=== PATIENT | male | born 1965 | race Caucasian/White ===

== ENCOUNTER 2019-03-25 12:49 | Outpatient (CLI) | payer BC ==
--- NOTE | 2019-03-25 13:56 | CT ---
CT lumbar spine without contrast: HISTORY: Lumbar radiculopathy. Patient states low back pain with right leg pain. History of L4-5 fusion. COMPARISON: No prior CT exams of the lumbar spine available FINDINGS: A 1.7 cm exophytic hypodense lesion is seen involving the posterior aspect midportion right kidney. F urther evaluation with renal sonogram is recommended. Minimal vascular calcifications are seen in the abdominal aorta and involving the iliac arteries. Colonic diverticulosis is seen involving the visualized sigmoid colon. No fracture or subluxation is seen involving lumbar spine. Surgical clips are seen anterior to the L4 -5 level. L1-2: No significant central canal or neural foraminal narrowing is seen. L2-3: No significant central canal or neural foraminal narrowing is seen. L3-4: There is a mild disc osteophyte complex as well as facet degenerative changes. There is resulta nt mild narrowing of the central spinal canal. There is minimal bilateral neural foraminal narrowing on the right. The left neural foramen is patent. L4-5: There is loss of intervertebral disc height with endplate degenerative changes at this level. P rominent osteophytes are seen anteriorly. There is calcification in the intervertebral disc. A mild disc osteophyte complex is present which does encroach on the anterior aspect of the thecal sac. Ther e is mild left-sided neural foraminal narrowing. The right neural foramen is patent. L5-S1: There is a mild disc osteophyte complex present with evidence of a central/right paracentral d isc protrusion. This disc protrusion does appear to contact of the traversing right S1 nerve root and may affect the traversing right S1 nerve root. There is no narrowing of the thecal sac at this le deirdre. Mild bilateral neural foraminal narrowing is noted. IMPRESSION: 1. Exophytic hypodense lesion posterior aspect midportion right kidney which cannot be further charac terized based on this exam. Renal sonogram is recommended for further evaluation. 2. Degenerative changes lumbar spine with a disc osteophyte complex and central/right paracentral dis c protrusion at the L5-S1 level which does appear to contact the traversing right S1 nerve root. This may potentially affect the traversing right S1 nerve root, and correlation with neurological exa m is recommended.
== END 2019-03-25 12:50 | disposition home or self-care (01) ==
LOC: TBSIIMAG 12:49
PROVIDERS: ATTEND Neurological Surgery
DX: M47.26 Other spondylosis with radiculopathy, lumbar region (principal); M51.27 Other intervertebral disc displacement, lumbosacral region; M25.78 Osteophyte, vertebrae; N28.89 Other specified disorders of kidney and ureter
CPT/HCPCS: 72131

== ENCOUNTER 2019-04-28 08:04 | Day surgery (SDC) | payer BC ==
[2019-04-25 09:03] VITALS: BMI 35.9
[2019-04-28 08:50] LABS: #Basophils 0.1 thou/uL (0.0-0.2); #Eosinphils 0.1 thou/uL (0.0-0.7); #Lymphocytes 2.5 thou/uL (1.20-3.40); #Monocytes 0.7 thou/uL (0.11-0.59); #Neutrophils 3.7 thou/uL (1.40-6.50); %Basophils 0.9 % (0.0-1.0); %Lymphocytes 35.6 % (21.0-51.0); %Monocytes 9.6 % (0.0-10.0); %Neutrophils 51.9 % (42.0-75.0); Mean Corpuscular HGB CONC 33.5 g/dL (32.0-36.0); Mean Corpuscular Hemoglobin 30.1 pg (27.0-31.0); Mean Corpuscular Volume 89.8 fL (78.0-98.0); Mean Platelet Volume 8.2 fL (7.4-10.4); Platelet Count 246 thou/uL (130-400); RBC Distribution Width 11.8 % (11.5-14.5); Red Blood Cell (RBC) Count 4.99 mill/uL (4.70-6.10)
[2019-04-28 09:16] LABS: Anion Gap 11 mmol/L (10-20); BUN (Urea Nitrogen) 16 mg/dL (8.4-25.7); Calc. Creatinine Clearance 161 mL/min (70-130); Calcium 9.3 mg/dL (7.8-10.44); Carbon Dioxide 27 mmol/L (22-29); Chloride 106 mmol/L (98-107); Estimated GFR-MDRD Greater than 90; Glucose 92 mg/dL (70-105); Potassium 4.4 mmol/L (3.5-5.1); Sodium 140 mmol/L (136-145)
[2019-04-28] MEDS ORDERED: Rocuronium Bromide 10 MG/ML (10ML VIAL) ONE (10:23)
[2019-04-28] MEDS ORDERED: Ketorolac Tromethamine 30 MG/ML VIAL ONE (10:23)
[2019-04-28] MEDS ORDERED: Glycopyrrolate 0.2 MG/ML 5 ML SYRINGE ONE (10:23)
[2019-04-28] MEDS ORDERED: PROPOFOL 200 MG/20 ML VIAL ONE (10:23)
[2019-04-28] MEDS ORDERED: Ondansetron PF 4 MG/2 ML Vial ONE (10:23)
[2019-04-28] MEDS ORDERED: Succinylcholine Chloride 20 MG/ML 10 ml SYRINGE FS ONE (10:23)
[2019-04-28] MEDS ORDERED: Lidocaine 1% PF 5 ML VIAL ONE (10:23)
[2019-04-28] MEDS ORDERED: Dexamethasone 20 MG/5 ML VIAL ONE (10:23)
[2019-04-28] MEDS ORDERED: Fentanyl 100 MCG/2 ML VIAL ONE ×3 (10:31→12:52)
[2019-04-28] MEDS ORDERED: Tamsulosin HCl 0.4 MG CAP ONE (12:18)
--- NOTE | 2019-04-28 16:29 | EKG ---
Test Reason : PREOP Blood Pressure : / mmHG Vent. Rate : 064 BPM Atrial Rate : 064 BPM P-R Int : 164 ms QRS Dur : 096 ms QT Int : 396 ms P-R-T Axes : 060 019 022 degrees QTc Int : 408 ms Normal sinus rhythm Normal ECG No previous ECGs available Confirmed by DR. Bautista BAR ([id number]) on 04/28/2019 4:28:50 PM Referred By: RAS Confirmed By:DR. Bautista BAR
--- NOTE | 2019-04-28 17:12 | OP ---
DATE OF PROCEDURE: 04/28/2019 BARGEMAN: An Ortiz PA-C PROCEDURE PERFORMED: Right L5-S1 microdiskectomy. DESCRIPTION OF PROCEDURE: The patient was brought to the operating room and intubated. He was rolled in a prone position on gel-filled chest rolls. An incision was made exposing right L5-S1 and level was confirmed by x-ray. We performed a right L5-S1 hemilaminectomy, removed the ligament, identified the right S1 nerve root and beneath this was a large disk herniation. This was incised and debrided multiple fragments. A complete decompression of right S1 was achieved. We then extensively irrigated. MAC hemostasis was secured. Vancomycin powder was applied and the wound was then closed in anatomic layers. Job ID: [id number]
== END 2019-04-28 14:55 | disposition home or self-care (01) ==
LOC: SDC 08:04
PROVIDERS: ATTEND Neurological Surgery
PROC: 0SB20ZZ Excision of Lumbar Vertebral Disc, Open Approach (ICD-10-PCS; principal; 2019-04-28)
PROC: 01NB0ZZ Release Lumbar Nerve, Open Approach (ICD-10-PCS; principal; 2019-04-28)
DX: M51.17 Intervertebral disc disorders with radiculopathy, lumbosacral region (principal); M10.9 Gout, unspecified; K21.9 Gastro-esophageal reflux disease without esophagitis; Z79.899 Other long term (current) drug therapy; Z88.5 Allergy status to narcotic agent; Z98.1 Arthrodesis status
CPT/HCPCS: 36415; 76000; 80048; 85025; 93005; 93010; J0690; J1100; J1885; J2001; J2405; J2704; J3010; J3370